=== PATIENT | female | born 1985 | race Caucasian/White ===

== ENCOUNTER → 2017-03-04 12:38 | Outpatient (CLI) | payer MEDICAID ==
[2012-12-05 11:04] VITALS: BMI 30.7
== END | disposition home or self-care (01) ==
LOC: D.US 12:38
DX: O35.2XX0 Maternal care for (suspected) hereditary disease in fetus, not applicable or unspecified (principal)

== ENCOUNTER 2017-05-05 00:20 | Emergency (ER) | payer MEDICAID ==
[2012-12-05 11:04] VITALS: BMI 30.7
== END 2017-05-05 01:22 | disposition home or self-care (01) ==
LOC: D.ER 00:20
DX: L30.4 Erythema intertrigo (principal); R11.0 Nausea

== ENCOUNTER 2017-05-05 16:51 | Emergency (ER) | payer MEDICAID ==
[2012-12-05 11:04] VITALS: BMI 30.7
== END 2017-05-05 18:28 | disposition home or self-care (01) ==
LOC: D.ER 16:51
DX: L30.4 Erythema intertrigo (principal)

== ENCOUNTER → 2017-05-20 11:55 | Outpatient (CLI) | payer BC ==
[2012-12-05 11:04] VITALS: BMI 30.7
== END | disposition home or self-care (01) ==
LOC: D.US 11:55
DX: Z34.90 Encounter for supervision of normal pregnancy, unspecified, unspecified trimester (principal)

== ENCOUNTER → 2017-06-21 11:39 | Outpatient (CLI) | payer BC ==
[2012-12-05 11:04] VITALS: BMI 30.7
== END | disposition home or self-care (01) ==
LOC: D.LDO 11:39 → D.LD 11:41
DX: O16.9 Unspecified maternal hypertension, unspecified trimester (principal); Z3A.00 Weeks of gestation of pregnancy not specified

== ENCOUNTER → 2017-06-24 10:25 | Outpatient (CLI) | payer BC ==
[2012-12-05 11:04] VITALS: BMI 30.7
[2017-06-24 11:41] LABS: BASOPHILS 0.1 % (0-2); EOSINOPHILS 1.4 % (0-7); HEMATOCRIT 31.6 % (36.0-48.0); HEMOGLOBIN 10.6 g/dL (12-16); IMMATURE GRANULOCYTES 0.5 % (0-5); LYMPHOCYTES 24.1 % (15-50); MCHC 33.5 g/dL (31.0-37.0); MCV 83.6 fL (80.0-100.0); MONOCYTES 9.6 % (2-11); NEUTROPHILS 64.3 % (40-80); PLATELET COUNT 213 10x3/uL (130-400); RBC 3.78 10x6/uL (4.00-5.40); RDW 13.5 % (11.5-14.5); WBC 7.7 10x3/uL (4.8-10.8)
[2017-06-24 11:58] LABS: ALBUMIN 2.4 g/dL (3.4-5.0); ALKALINE PHOSPHATASE 118 U/L (46-116); ALT (SGPT) 21 U/L (10-68); BILIRUBIN - TOTAL 0.28 mg/dL (0.2-1.3); CALC OSMOLALITY 267 mosm/kg (275-300); CALCIUM 8.6 mg/dL (8.5-10.1); CARBON DIOXIDE 23.5 mmol/L (21.0-32.0); CHLORIDE - SERUM 104 mmol/L (98-107); CREATININE - SERUM 0.6 mg/dL (0.6-1.3); GLUCOSE 86 mg/dL (74-106); POTASSIUM - SERUM 3.2 mmol/L (3.5-5.1); PROTEIN - SERUM 5.9 g/dL (6.4-8.2); SODIUM 136 mmol/L (136-145); UREA NITROGEN 5 mg/dL (7-18); URIC ACID 4.1 mg/dL (2.6-7.2); eGFR NON AFRICAN AMERICAN > 90 mL/min (90-120)
== END | disposition home or self-care (01) ==
LOC: D.LDO 10:25
PROVIDERS: Obstetrics & Gynecology
DX: O16.3 Unspecified maternal hypertension, third trimester (principal); Z3A.36 36 weeks gestation of pregnancy

== ENCOUNTER → 2017-06-25 10:24 | Outpatient (CLI) | payer BC ==
[2012-12-05 11:04] VITALS: BMI 30.7
[2017-06-25 11:15] LABS: BASOPHILS 0.1 % (0-2); HEMATOCRIT 31.5 % (36.0-48.0); HEMOGLOBIN 10.4 g/dL (12-16); IMMATURE GRANULOCYTES 0.6 % (0-5); LYMPHOCYTES 18.8 % (15-50); MCH 27.6 pg (26.0-34.0); MCV 83.6 fL (80.0-100.0); MEAN PLATELET VOLUME 9.9 fL (7.4-10.4); MONOCYTES 7.3 % (2-11); NEUTROPHILS 72.2 % (40-80); PLATELET COUNT 214 10x3/uL (130-400); RBC 3.77 10x6/uL (4.00-5.40); RDW 13.4 % (11.5-14.5); WBC 8.7 10x3/uL (4.8-10.8)
[2017-06-25 11:43] LABS: ALBUMIN 2.3 g/dL (3.4-5.0); ALKALINE PHOSPHATASE 115 U/L (46-116); ALT (SGPT) 20 U/L (10-68); BILIRUBIN - INDIRECT 0.25 mg/dL (0.00-1.00); BILIRUBIN - TOTAL 0.29 mg/dL (0.2-1.3); CALC OSMOLALITY 265 mosm/kg (275-300); CALCIUM 8.3 mg/dL (8.5-10.1); CARBON DIOXIDE 22.6 mmol/L (21.0-32.0); CHLORIDE - SERUM 103 mmol/L (98-107); CREATININE - SERUM 0.5 mg/dL (0.6-1.3); GLUCOSE 83 mg/dL (74-106); POTASSIUM - SERUM 3.3 mmol/L (3.5-5.1); PROTEIN - SERUM 5.9 g/dL (6.4-8.2); SODIUM 135 mmol/L (136-145); UREA NITROGEN 5 mg/dL (7-18); URIC ACID 4.1 mg/dL (2.6-7.2); eGFR NON AFRICAN AMERICAN > 90 mL/min (90-120)
[2017-06-25 11:54] LABS: BILIRUBIN - DIRECT 0.04 mg/dL (0.00-0.30)
== END | disposition home or self-care (01) ==
LOC: D.LDO 10:24
PROVIDERS: Obstetrics & Gynecology
DX: O16.3 Unspecified maternal hypertension, third trimester (principal); Z3A.36 36 weeks gestation of pregnancy

== ENCOUNTER → 2017-06-28 13:13 | Outpatient (CLI) | payer BC ==
[2012-12-05 11:04] VITALS: BMI 30.7
[~2017-06-28 13:13] MED LIST: BUTALB-APAP-CA1 EACH PO; PRENATAL COMPLE1 TAB PO; ZANTAC150 MG PO
== END | disposition home or self-care (01) ==
LOC: D.LDO 13:13
DX: O36.8130 Decreased fetal movements, third trimester, not applicable or unspecified (principal); Z3A.37 37 weeks gestation of pregnancy

== ENCOUNTER 2017-06-30 09:12 | Outpatient (CLI) | payer BC ==
[2012-12-05 11:04] VITALS: BMI 30.7
[2017-06-30 09:44] LABS: APPEARANCE HAZY (CLEAR); BILIRUBIN NEGATIVE (NEGATIVE); COLOR YELLOW (YELLOW); GLUCOSE NEGATIVE (NEGATIVE); KETONE NEGATIVE (NEGATIVE); NITRITE NEGATIVE (NEGATIVE); PROTEIN NEGATIVE (NEGATIVE); SPECIFIC GRAVITY 1.015 (1.005-1.020); UROBILINOGEN NORMAL (NORMAL)
[2017-06-30 10:24] LABS: HEMATOCRIT 32.1 % (36.0-48.0); HEMOGLOBIN 10.5 g/dL (12-16); MCH 27.2 pg (26.0-34.0); MCHC 32.7 g/dL (31.0-37.0); MCV 83.2 fL (80.0-100.0); MEAN PLATELET VOLUME 10.7 fL (7.4-10.4); RBC 3.86 10x6/uL (4.00-5.40); RDW 13.2 % (11.5-14.5); WBC 7.3 10x3/uL (4.8-10.8)
[2017-06-30 10:38] LABS: CALC OSMOLALITY 274 mosm/kg (275-300); CARBON DIOXIDE 23.4 mmol/L (21.0-32.0); CHLORIDE - SERUM 103 mmol/L (98-107); CREATININE - SERUM 0.6 mg/dL (0.6-1.3); GLUCOSE 90 mg/dL (74-106); POTASSIUM - SERUM 3.2 mmol/L (3.5-5.1); SODIUM 139 mmol/L (136-145); UREA NITROGEN 4 mg/dL (7-18); URIC ACID 4.6 mg/dL (2.6-7.2); eGFR NON AFRICAN AMERICAN > 90 mL/min (90-120)
[2017-06-30 10:54] LABS: ALT (SGPT) 19 U/L (10-68)
[2017-06-30] MEDS ORDERED: BUTALB-APAP-CA1 EACH PO (20:16)
[2017-06-30] MEDS ORDERED: PRENATAL COMPLE1 TAB PO (20:17)
== END 2017-06-30 20:20 | disposition home or self-care (01) ==
LOC: D.LDO 09:12 → D.LD 13:28 → D.LDO 20:20
PROVIDERS: Obstetrics & Gynecology
DX: O26.893 Other specified pregnancy related conditions, third trimester (principal); Z3A.37 37 weeks gestation of pregnancy; R51 Headache; R11.0 Nausea

== ENCOUNTER → 2017-07-01 10:06 | Outpatient (CLI) | payer BC ==
[2012-12-05 11:04] VITALS: BMI 30.7
[2017-07-01 12:44] LABS: APPEARANCE HAZY (CLEAR); BACTERIA FEW /hpf (NONE SEEN); BILIRUBIN NEGATIVE (NEGATIVE); COLOR YELLOW (YELLOW); EPITHELIAL CELLS 0-5 /hpf (0-5); GLUCOSE NEGATIVE (NEGATIVE); KETONE NEGATIVE (NEGATIVE); NITRITE NEGATIVE (NEGATIVE); PROTEIN NEGATIVE (NEGATIVE); SPECIFIC GRAVITY 1.015 (1.005-1.020); WHITE CELLS - URINE 0-5 /hpf (0-5)
[2017-07-01 12:45] LABS: CALCIUM OXALATE CRYSTALS 0-5 /hpf (NONE SEEN); MUCUS <1+ /lpf (NONE SEEN)
== END | disposition home or self-care (01) ==
LOC: D.LDO 10:06
PROVIDERS: Obstetrics & Gynecology
DX: Z34.83 Encounter for supervision of other normal pregnancy, third trimester (principal); Z3A.37 37 weeks gestation of pregnancy; R51 Headache; R11.2 Nausea with vomiting, unspecified

== ENCOUNTER 2017-07-04 15:53 | Inpatient (IN) | payer BC ==
[~2017-07-04 15:53] MED LIST changes: -ZANTAC150 MG PO
[2017-07-04 16:30] LABS: BASOPHILS 0.1 % (0-2); EOSINOPHILS 0.9 % (0-7); HEMATOCRIT 33.3 % (36.0-48.0); HEMOGLOBIN 10.9 g/dL (12-16); IMMATURE GRANULOCYTES 0.4 % (0-5); LYMPHOCYTES 15.3 % (15-50); MCH 27.2 pg (26.0-34.0); MCHC 32.7 g/dL (31.0-37.0); MEAN PLATELET VOLUME 10.3 fL (7.4-10.4); MONOCYTES 6.4 % (2-11); NEUTROPHILS 76.9 % (40-80); PLATELET COUNT 227 10x3/uL (130-400); RBC 4.01 10x6/uL (4.00-5.40); RDW 13.2 % (11.5-14.5); WBC 11.3 10x3/uL (4.8-10.8)
[2017-07-04 16:50] LABS: CALC OSMOLALITY 270 mosm/kg (275-300); CALCIUM 8.3 mg/dL (8.5-10.1); CARBON DIOXIDE 22.9 mmol/L (21.0-32.0); CHLORIDE - SERUM 102 mmol/L (98-107); CREATININE - SERUM 0.7 mg/dL (0.6-1.3); GLUCOSE 128 mg/dL (74-106); SODIUM 136 mmol/L (136-145); UREA NITROGEN 4 mg/dL (7-18); eGFR NON AFRICAN AMERICAN > 90 mL/min (90-120)
[2017-07-04 20:57] VITALS: BP 138/82; BMI 35.5
[2017-07-04] MEDS ORDERED: ZANTAC150 MG PO (21:04)
[2017-07-05] VITALS (11 sets, daily range): BP systolic 118–149; BP diastolic 50–86
--- NOTE | 2017-07-05 09:58 | NUR ---
RCVD PT FROM PACU. PT AAOX3 AND DENIES FEELING OR SENSATION IN BLE. BREATH SOUNDS CLEAR & UNLABORED X2. HR-123 MD AWARE OF ELEVATED HR. OTHER VSS. PPP. PIV TO RT FOREARM PATENT WITH NO SIGNS OF ERYTHEMA OR EDEMA NOTED TO SITE. NS WITH 20 U PITOCIN INFUSING @ 125ML/HR VIA ALARIS PUMP. HEAVY LOCHIA RUBRA NOTED PT IS MOVED OVER TO REGULAR BED. PERIPADS PLACED AT PERINEUM AND CLEAN CHUCKS AND PADS DOWN. PT DENIES PAIN AT THIS TIME. FUNDUS IS FIRM AND ML. NO CLOTS NOTED UPON MASSAGE. SCD'S ON BLE AND CONNECTED TO PUMP, PUMP FUNCTIONING PROPERLY. BOWEL SOUNDS ACTIVE X4. URIAS CATH IN PLACE AND DRAINING TO GRAVITY. LEMON AKUTAN SODA AND ICE WATER PROVIDED TO PT AT THIS TIME. PT DENIES FURTHER NEEDS. WILL CONT TO MONITOR. BED LOW, WHEELS LOCKED, CL IN REACH. SIDE RAILS UP X2.
--- NOTE | 2017-07-05 10:12 | NUR ---
200MCG CYTOTEC GIVEN PO PER ORDERS. SEE EMAR.
--- NOTE | 2017-07-05 10:17 | NUR ---
CONSULTED ANETHESIA REGARDING ELEVATED HEART RATE IN PACU. PATIENT'S PREOP HEART RATE WAS 100BPM. NO FURTHER ORDERS RECEIVED FROM DR NOLEN.
--- NOTE | 2017-07-05 10:18 | NUR ---
FUNDUS IS FIRM, MIDLINE AT THE UMBILICUS. MODERATE BLEEDING NOTED ON PERIPAD.
--- NOTE | 2017-07-05 11:15 | NUR ---
ROUNDS MADE. FUNDUS REMAINS FIRM AND U/U. HEAVY LOCHIA RUBRA NOTED TO PERIPADS, PADS, BLUE PADS, AND CHUCKS CHANGED AT THIS TIME. LARGE CLOT WITH SMALL PIECE OF POSSIBLE TISSUE NOTED AND COLLECTED TO SEND TO PATHOLOGY. PT DENIES PAIN OR FURTHER NEEDS AT THIS TIME.
--- NOTE | 2017-07-05 11:22 | NUR ---
CALLED TO REVIEW ORDER FOR ONION ALLERGY. PER DR GARCIA, D/C ORDER DUE TO MISTAKE.
--- NOTE | 2017-07-05 12:02 | NUR ---
ROUNDS MADE. FUNDUS FIRM, ML, U/U. MOD LOCHIA RUBRA NOTED TO PERIPAD WITH NO CLOTS NOTED. PADS CHANGED AT THIS TIME. PT DENIES PAIN OR NEEDS.
--- NOTE | 2017-07-05 13:09 | OP ---
PATIENT NAME: ISIDRA RUBIO MEDICAL RECORD: [id number] :86 LOCATION:[id number] ADMISSION DATE:07/04/17 SURGEON: SOLANGE YOUSIF MD DATE OF OPERATION: 07/05/2017 PRE-DELIVERY DIAGNOSIS: -induced hypertension at 38 weeks. POSTDELIVERY DIAGNOSES: 1. Variable decelerations. Mother delivered at term. 2. Retained placenta. PROCEDURES: 1. Vacuum-assisted delivery. 2. Attempted manual extraction of the placenta. ATTENDING: Solange Yousif MD ANESTHETIC: Continuous lumbar Epidural. FINDINGS: Viable male infant, vertex presentation, ROP. Apgars 1 minute not assigned, 5 minute 9, weight 2835 grams. with deep variable decelerations repetitive. The patient with poor maternal effort. At the time of delivery, cord is avulsed and placenta was attempted to be manually extracted with adherence to the uterine wall. No laceration. ESTIMATED BLOOD LOSS: 300 cc. DISPOSITION: Mother consented for a curettage and a tubal ligation due to unwanted fertility. TRANSINT:[id number] Voice Confirmation ID: [id number] DOCUMENT ID: [id number] SOLANGE YOUSIF MD at 1309 CC: [id number] DICTATION DATE: 07/05/17734 CUT AND COVER LINE WORKER: 07/05/17 0810 ADM IN [place] [id number]
--- NOTE | 2017-07-05 13:44 | NUR ---
TORADOL GIVEN PER ORDERS. SEE EMAR. PT REPORTS FEELING IN BLE. URIAS CATH REMOVED PER V/O DR GARCIA. ADV PT TO CALL BEFORE GETTING UP TO VOID. PT VERBALIZED UNDERSTANDING.
--- NOTE | 2017-07-05 14:10 | NUR ---
PAIN REASSESSMENT COMPLETE. PT RATES PAIN 4/10 AT THIS TIME AND TOLERABLE. PT SITTING UP WITH INFANT UP IN ARMS. DENIES FURTHER NEEDS. WILL CONT TO MONITOR.
--- NOTE | 2017-07-05 15:50 | NUR ---
REQUESTED TO GET UP TO BATHROOM TO VOID. ASSISTED TO BR WITHOUT DIFFICULTY. UNABLE TO VOID AT THIS TIME BUT SAYS SHE HAD A BOWEL MOVEMENT. DESIRED TO TAKE A SHOWER. BLEEDING SCANT, NO BLOOD CLOTS IN COMMODE. IV FLUIDS DC'D. SALINE LOCK MAINTAINED FOR ANTIBIOTIC THERAPY. ASSISTED TO SHOWER. COMPLETE LINEN CHANGED PERFORMED.
--- NOTE | 2017-07-05 16:29 | NUR ---
FINISHED SHOWER. AMBULATED IN ROOM. CLEAN TAMICA-PADS ON X 2. SAYS SHE FEELS MUCH BETTER AFTER THE SHOWER. SALINE LOCK FLUSED X 3 AND NEW CAPS PLACED ON PORTS. IN ARMS. SIDE RAILS UP X 2. CALL LIGHT IN REACH. VISITORS IN ROOM. FRESH WATER GIVEN. NO ADDITIONAL REQUESTS.
--- NOTE | 2017-07-05 17:45 | NUR ---
HAS ATTEMPTED TO VOID SEVERAL TIMES BUT SAYS SHE HAS BEEN UNABLE TO. STATES "I FEEL LIKE I HAVE TO GO BUT CAN'T". IN AND OUT CATH DONE USING SEISMIC OBSERVER WITHOUT DIFFICULTY. 800 ML LIGHT YELLOW RETURN. CATH REMOVED. U/1 FIRM MIDLINE. RUBRA SMALL. PERINEAL/LABIAL EDEMA NOTED. WILL PROVIDE ICE PACK FOR RELIEF OF EDEMA. IN ROOM. SIDE RAILS UP X 2, CALL LIGHT IN REACH.
--- NOTE | 2017-07-05 18:20 | NUR ---
REQUESTED SOMETHING FOR PERINEAL PRESSURE/THROBBING. 04/08 PAIN. DEMEROL 50 MG GIVEN PO FOR RELIEF. ICE PACK ON PERINEUM. INSTRUCTED IF FEELING DROWSY INFANT NEEDS TO BE IN CRIB AND NOT TO SLEEP WITH INFANT IN ARMS. ALSO TO CALL NURSE FOR ASSISTANCE TO BATHROOM IF FEELING DROWSY. VERBALIZED UNDERSTANDING. SIDE RAILS UP X 2, CALL LIGHT IN REACH. ANTIBIOTIC INFUSING.
--- NOTE | 2017-07-05 19:07 | NUR ---
THIS RN TO BEDSIDE FOR SHIFT ASSESSMENT. PT AA&O X4. PAIN ASSESSED. PT RATES PAIN 04/08. PT RECENTLY MEDICATED W/DEMEROL 100MG PO. BREATHSOUNDS CL/=, ABD W/MILD DISTENTION AND FIRMNESS NOTED. PT DENIES PASSING FLATUS OF YET.FUNDUS FIRM,U/U,LAP INCISION AT UMBILICUS W/BANDAID OVER SITE W/OUT REDNESS OR DRAINING. MILD EDEMA TO LABIA NOTED. SMALL LOCHIA NOTED. PT CURRENTLY HAS ICE CAP TO PERINEUM. NO EDEMA TO LE'S NOTED. PEDAL PULSES PRESENT X 2.PT DENIES NEEDING ANYTHING TO EAT OR DRINK AT THIS TIME. PLANS TO REST. TORADOL 30MG DILUTED IN 5ML NS GIVEN SIVP PER MD ORDERS. SEE EMAR. BED LOW, SIDE RAILS UP X 2. CALL LIGHT AND PHONE AT PT'S SIDE.
--- NOTE | 2017-07-05 20:00 | NUR ---
ROUNDS MADE. PT RESTING IN LOW CURRIE'S W/EYES CLOSED. RESP EVEN. SNORING AUDIBLE. PT LEFT UNDISTURBED TO ALLOW FOR REST.
--- NOTE | 2017-07-05 21:00 | NUR ---
INFANT TRANSPORTED VIA CRIB TO PT'S ROOM FOR NURSING. PT CURRENTLY AWAKE AND ENDING A PHONE CALL. NURSERY BANDS VERIFIED PER PROTOCOL. INFANT PLACED IN PT'S ARMS.PT DENIES NEEDS AT PRESENT.
--- NOTE | 2017-07-05 22:00 | NUR ---
PT. CALLED THIS NURSE TO ROOM STATING, "I PASSED THE REST OF IT." INTO PT. ROOM AND LARGE AMT. OF TISSUE NOTED IN [place] HAT. TISSUE REMOVED AND PLACED IN BUCKET. TISSUE EXAMINED AND AN APPROXIMATE 8CM BY 8 CM SECTION OF TISSUE NOTED THAT APPEARS PLACENTAL TISSUE. PT. STATES, "IT WAS LIKE GIVING AND I FEEL MUCH BETTER."
--- NOTE | 2017-07-05 22:15 | NUR ---
THIS RN TO PT'S ROOM. PT UP AMBULATING IN ROOM. INFANT IN CRIB. PT REPORTS SHE CAN'T GET AWAKE ENOUGH FOR NURSING. INFANT STIMULATED. PT TO BED. NIPPLE SHIELD IN PLACE. PT ATTEMPTING TO LATCH INFANT THISR N LEAVES THE ROOM.
--- NOTE | 2017-07-05 22:17 | NUR ---
DR. ROWAN CALLED AND INFORMED OF TISSUE THAT WAS PASSED. ORDER RECEIVED.
--- NOTE | 2017-07-05 23:05 | NUR ---
Devora REINOSO,RN NBN NURSE REQUEST THIS RN TO PT'S ROOM TO ASSESS HUGS TAG. THIS RN TO PT'S ROOM. HUGS TAG AND NB ID TAG FOUND TO HAVE SLIPPED OFF INFANTS LEGS. PT DENIES PAIN OR NEEDS AT PRERSENT. PT REPORTS STILL HAS NOT NURSED. PT INFORMED THAT NBN NURSE WILL BE INFORMED AND WILL RETURN TO ROOM TO ASSIST W/GETTING LATCHED. PT IS AGREEABLE. TRANSPORTED AT THIS TIME VIA CRIB TO NBN SO NBN NURSE MAY PLACE TAGS BACK ON AND TO BE INFORMED THAT MOM NEEDS ASSSISTANCE W/GETTING LATCHED AND NURSING.
--- NOTE | 2017-07-06 00:05 | NUR ---
THIS RN TO BEDSIDE FOR ROUNDING AND V/S. PT AWAKE LYING IN BED W/ UP IN ARMS. PAIN AND NEEDS ASSESSED. PT DENIES NEEDS AT PRESENT AND DENIES HAVING PAIN SINCE PASSING REMAINING PLACENTA. PT REPORT SHE IS GOING TO TRY AND REST AGAIN. REQUEST BE PLACED IN CRIB AT BEDSIDE. RECEIVED FROM PT. SWADDLED X 2 W/HAT ON. PLACING IN CRIB AT PT'S SIDE SO PT MAY SEE INFANTS FACE. LIGHTS TURNED DOWN PER REQUEST. BED LOW, SIDE RAILS UP X 2. CALL LIGHT AND PHONE AT BEDSIDE.
[2017-07-06 00:15] VITALS: BP 140/70
--- NOTE | 2017-07-06 02:00 | NUR ---
THIS RN TO BEDSIDE FOR ROUNDING AND TO ADMIN ANCEF 2GM PER MD ORDERS. PAIN AND NEEDS ASSESSED. PT W/C/O ABD CRAMPING. DECLINES DEMEROL AT THIS. TORADOL 30MG DILUTED IN 5ML NS GIVEN SIVP PER MD ORDERS.V/S OBTAINED. SEE FLOWSHEET. QUIET W/EYES CLOSED IN CRIB AT BEDSIDE. NO RESP DISTRESS NOTED. EMAR FOR DOC OF MEDICATIONS GIVEN.
--- NOTE | 2017-07-06 02:30 | NUR ---
INFANT RETURNED FROM NURSERY FOR . ID BANDS VERIFIED PER PROTOCOL. PLACED IN PT'S ARMS. PT DENIES NEEDS AT THIS TIME. FRESH ICE WATER AND PP TREAT BOX PROVIDED.
--- NOTE | 2017-07-06 02:30 | NUR ---
IV PUMP SOUNDING. THIS RN TO BEDSIDE. IVBP INFUSION COMPLETED. LINE FLUSHED AND IV SITE SALINE LOCKED. PT TO BEGIN NURSING AT THIS TIME. NO NEEDS VOICED AT THIS TIME.
--- NOTE | 2017-07-06 03:15 | NUR ---
ROUNDS MADE. PT HAS FINISHED NURSING. REQUESTING PAIN MEDICATION AT THIS TIME FOR ABD CRAMPING THAT SHE RATES 04/08. PT ASSISTED W/CHANGING AND SWADDLING.
--- NOTE | 2017-07-06 03:24 | NUR ---
DEMEROL 50MG PO GIVEN. PT DENIES FURTHER NEEDS AT THIS TIME.
--- NOTE | 2017-07-06 04:15 | NUR ---
ROUNDS MADE FOR PAIN REASSESSMENT. PT RESTING QUIETLY W/EYES CLOSED. RESP EVEN. PT LEFT UNDISTURBED AT THIS TIME.
[2017-07-06 05:13] LABS: RAPID PLASMA REAGIN Non Reactive (Non Reactive)
--- NOTE | 2017-07-06 05:15 | NUR ---
ROUNDS MADE.PT SITTING UP IN BED TENDING TO INFANT. PAIN AND NEEDS ASSESSED. PT DENIES NEEDS AT PRESENT. REPORTS PAIN AT 2/10. DENIES NEEDING ADDITIONAL PAIN INTERVENTIONS AT THIS TIME.
--- NOTE | 2017-07-06 06:30 | NUR ---
HUMAN MACHINE INTERFACE ENGINEER TO ROOM FOR MORNING BLOOD DRAW. THIS RN TO ROOM FOR ROUNDING. PT AWAKE SITTING UP IN BED W/ UP IN ARMS. PT DENIES NEEDS AND W/O COMPLAINTS.
[2017-07-06 07:02] LABS: BASOPHILS 0.2 % (0-2); EOSINOPHILS 1.9 % (0-7); HEMATOCRIT 26.7 % (36.0-48.0); IMMATURE GRANULOCYTES 0.5 % (0-5); LYMPHOCYTES 16.6 % (15-50); MCH 27.2 pg (26.0-34.0); MCHC 32.6 g/dL (31.0-37.0); MCV 83.4 fL (80.0-100.0); MEAN PLATELET VOLUME 10.4 fL (7.4-10.4); NEUTROPHILS 73.8 % (40-80); PLATELET COUNT 229 10x3/uL (130-400); RDW 13.4 % (11.5-14.5)
[2017-07-06 07:07] LABS: HEMOGLOBIN 8.7 g/dL (12-16); WBC 14.7 10x3/uL (4.8-10.8)
[2017-07-06 07:10] VITALS: BP 120/73
--- NOTE | 2017-07-06 07:10 | NUR ---
ASSUME CARE OF THIS PATIENT. SITTING UP IN BED HOLDING . SHIFT ASSESSMENT COMPLETED. 01/07 PERINEAL PRESSURE. LARGE BANDAID OVER UMBILICAL REGION, DRY AND INTACT. DENIES NEEDING ANYTHING AT THIS TIME. ENCOURAGE TO GET UP AND VOID. SIDE RAILS UP X 2 CALL LIGHT IN REACH.
--- NOTE | 2017-07-06 07:50 | NUR ---
RADIOLOGY CALLED TO CHECK ON TYPE OF US TO PERFORM. CONTACTED DR ROWAN- HE REQUEST ABDOMINAL US FOR DETERMINATION OF UTERINE CONTENTS.
--- NOTE | 2017-07-06 08:00 | NUR ---
AMBULATED TO NURSERY.
--- NOTE | 2017-07-06 08:24 | NUR ---
US TECH CALLED BACK TO L&D. NOTIFIED OF TYPE US REQUESTED BY DR ROWAN. INSTRUCTED BY TECH TO HAVE PATIENT EMPTY BLADDER AND THEN DRINK 3 GLASSES OF WATER. PATIENT INFORMED AND SAYS SHE JUST EMPTIED BLADDER. DRANK 400 ML OF WATER AT THIS TIME. WATER GLASS FILLED. DISCUSSED PAIN MANAGEMENT OPTION REGARDING US PROCEDURE ON ABDOMEN OVER BTL INCISION SITE. DESIRES PAIN MED. ANTICIPATE US PROCEDURE TO BE COMPLETED IN ONE HOUR. NURSERY. SIDE RAILS UP X 2, CALL LIGHT IN REACH.
--- NOTE | 2017-07-06 08:24 | NUR ---
I HAD THE NURSES CALL TO CLARIFY ORDER WITH . DO TRANSABDOMINAL ONLY FOR UTERUS TO CHECK FOR POC RETAINED. INSTRUCTIONS TO EMPTY AND DRINK AND I WILL DO IN APPROX 1 HOUR. AKIKO NAQVI AT 0820
--- NOTE | 2017-07-06 08:37 | NUR ---
PAGED DR ROWAN TO CHECK IF HE WANTS CYTOCirro TO CONTINUE THIS AM SINCE PT PASSED PLACENTAL MATERIAL LAST NIGHT AND BLEEDING IS MINIMAL. WAITING ON RETURN CALL.
--- NOTE | 2017-07-06 08:44 | NUR ---
DR ROWAN CALLED. RESULTS OF CBC GIVEN. ORDERS RECEIVED TO HOLD CYTOeGistics UNTIL RESULTS OF US. DEMEROL 50 MG GIVEN PO FOR RELIEF OF 5-6/10 PERINEAL PAIN. DECLINES FLU VACCINE. PLANS TDAP PRIOR TO DISCHARGE. REMAINS IN NURSERY. FINISHED DRINKING SECOND 500 ML. REFILL GIVEN. SIDE RAILS X 2 REMAIN UP. CALL LIGHT IN REACH.
--- NOTE | 2017-07-06 11:01 | NUR ---
SITTING UP IN BED . 2/10 ON PAIN SCALE. VISITORS IN ROOM. DENIES NEEDING ANYTHING. LINEN CHANGED BY NURSING STUDENTS. HAS NOT SHOWERED. TO CALL IF NEEDING ANYTHING.
--- NOTE | 2017-07-06 11:05 | NUR ---
US REPORT OBTAINED. DR ROWAN NOTIFIED OF RESULTS. ORDERS RECEIVED.
--- NOTE | 2017-07-06 12:33 | NUR ---
SITTING UP IN BED. REGULAR DIET IN ROOM. VISITORS AT BEDSIDE. DENIES NEEDING ANYTHING AT THIS TIME. TO CALL IF ANYTHING IS DESIRED.
--- NOTE | 2017-07-06 13:04 | NUR ---
SLEEPING WITH INFANT IN ARMS. AROUSED FROM SLEEP. INSTRUCTED NOT TO SLEEP WITH IN ARMS DUE TO SAFETY REASONS. INFANT PLACED IN CRIB AT BEDSIDE. ASKED PT IF SHE DESIRES INFANT TO GO TO NURSERY WHILE SHE TAKES A NAP. VERBALIZED YES. TO NURSERY IN CRIB. NO VISITORS CURRENTLY IN ROOM. LIGHTS ON LOW. SIDERAILS UP X 2, CALL LIGHT IN REACH.
--- NOTE | 2017-07-06 15:26 | NUR ---
SITTING UP IN BED INFANT. MK CRACKERS AND ORANGE JUICE GIVEN A SNACK PER PT REQUEST. TO CALL IF ANYTHING ELSE IS NEEDED. VERBALIZED UNDERSTANIND.
[2017-07-06 15:49] VITALS: BP 125/76
--- NOTE | 2017-07-06 15:49 | NUR ---
WATCHING TV. INFANT IN ARMS. NO REQUESTS. SIDERAILS UP X 1, CALL LIGHT IN REACH.
--- NOTE | 2017-07-06 18:22 | NUR ---
SITTING UP IN BED . DESIRES TO TAKE SHOWER WHILE FOB IS HERE. ITEMS PLACED IN BATHROOM FOR USE WHEN READY. SLIGHT ERRYTHEMA NOTED AT IV SITE. SALINE LOCK DC'D WITH TIP IN TACT. FOB IN ROOM. ASKED ABOUT A STOOL SOFTNER. INFORMED SHE HAS MOM ORDER FOR BEDTIME. WILL LET PM SHIFT KNOW PT DESIRES AT BEDTIME. VERBALIZED UNDERSTANDING. NO OTHER REQUESTS. SIDE RAILS UP X 2, CALL LIGHT IN REACH.
[2017-07-06 19:08] VITALS: BP 132/68
--- NOTE | 2017-07-06 19:08 | NUR ---
PT AWAKE AND ORIENTED. SKIN WARM AND DRY. HAS BEEN WALKING IN HALLWAY TO NURSERY PRIOR TO THIS ASSESSMENT. GAIT STEADY. ABD. BANDAID NOTED AT UMBILICUS. LOCHIA RUBRA SCANT. PT. STATES SHE HAS FELT WELL TODAY. DENIES ANY PAIN IN LOWER EXTREMITIES. BREATH SOUNDS CLEAR AND BOWEL SOUNDS AUDIBLE.
--- NOTE | 2017-07-06 20:25 | NUR ---
LYING IN BED WITH HOB AT 45 DEGREES. INFANT IN OPEN CRIB AT BEDSIDE. PT. DENIES ANY NEEDS AT THIS TIME.
--- NOTE | 2017-07-06 20:55 | NUR ---
STANDING BESIDE BED CHANGING . PT. DENIES ANY NEEDS AT THIS TIME. VOICED CONCERNS ABOUT CONSTIPATION. INFORMED COULD USE MILK OF MAGNESIA AT HOME IF NEEDED. PT. STATES SHE HAS COLACE ON HAND.
--- NOTE | 2017-07-06 22:30 | NUR ---
LYING ON LT SIDE WITH IN OPEN CRIB AT BEDSIDE. PT. AWAKE AND DENIES ANY NEEDS.
--- NOTE | 2017-07-06 23:20 | NUR ---
LYING ON BACK WITH HOB AT 45 DEGREES HOLDING AND WATCHING TV. STATES DESIRES TO BE HELD. DENIES ANY NEEDS.
--- NOTE | 2017-07-06 23:47 | NUR ---
AMBULATORY IN HALLWAY. STATES SHE IS WALKING TO VENDING FOR SNACK. INFORMED PT. OF NOURISHMENTS ON UNIT AND PT. DECLINES. STATES SHE JUST WANTS A SNACK.
--- NOTE | 2017-07-06 23:48 | NUR ---
BACK TO UNIT WITH SNACK. STATES SHE WILL EAT AND THEN GO TO SLEEP UNTIL INFANT RETURNS TO ROOM.
--- NOTE | 2017-07-07 00:32 | NUR ---
AMBULATORY TO NURSERY TO TAKE INFANT TO ROOM. PT. RELATES THAT SHE CAN'T SLEEP. DENIES ANY NEEDS. CHEERFUL.
--- NOTE | 2017-07-07 02:30 | NUR ---
AT PRESENT. PT. DENIES ANY NEEDS AT THIS TIME. WATCHING TV AT PRESENT.
--- NOTE | 2017-07-07 02:56 | NUR ---
AMBULATING IN HALLWAY.
--- NOTE | 2017-07-07 04:15 | NUR ---
INFANT RESTING IN MOTHER'S ARMS. NO S/S DISTRESS NOTED. [place]
--- NOTE | 2017-07-07 04:21 | NUR ---
SITTING UP IN BED HOLDING AND WATCHING TV. COLA DRINK SERVED TO PT. PER HER REQUEST.
--- NOTE | 2017-07-07 06:20 | NUR ---
LYING ON LT SIDE WITH EYES CLOSED. RESPIRATIONS REGULAR.
--- NOTE | 2017-07-07 06:28 | NUR ---
INFANT TO ROOM FOR FEEDING PER NBN STAFF.
--- NOTE | 2017-07-07 07:40 | NUR ---
ASSUMED CARE OF THIS PATIENT. SITTING UP IN BED HOLDING INFANT. SHIFT ASSESSMENT WAS COMPLETED. U/U FIRM MIDLINE. 5/10 INCISIONAL PAIN. MOTRIN 600 MG GIVEN PO FOR RELIEF. NO PRESCRIPTIONS ON CHART FOR DC. CONTACTED DR ROWAN TO CONFIRM THAT NO PRESCRIPTIONS WERE LEFT. HE CONFIRMED. DC ORDERS WERE RECEIVED PRIOR TO MD LEAVING L&D THIS AM. REGULAR DIET AT BEDSIDE. DENIES NEEDING ANYTHING FURTHER. DESIRES TDAP. WILL GIVE PRIOR TO DC TODAY. SIDE RAILS UP X 2, CALL LIGHT IN REACH.
[2017-07-07 07:43] VITALS: BP 136/71
--- NOTE | 2017-07-07 08:50 | NUR ---
REQUESTED PAIN MEDICATION FOR CONTINUED THROBBING OF BTL INCISION NO RELIEVED BY MOTRIN. DEMEROL 50 MG GIVEN PO FOR RELIEF. DECLINES SHOWER SAYING THAT "HE SAID NOT TO GET IT WET UNTIL TOMORROW". ARANZA X 2 CALL LIGHT IN REACH.
--- NOTE | 2017-07-07 10:30 | NUR ---
STANDING A BEDSIDE TALKING ON PHONE. SAYS HER PAIN IS NOW "A TWO". NO REQUESTS AT THIS TIME. ANTICIPATE DC HOME WITH INFANT.
--- NOTE | 2017-07-07 12:38 | NUR ---
TDAP GIVEN IM IN LEFT DELTOID WITHOUT DIFFICULTY. READY FOR DC HOME. VERBAL AND WRITTEN INFORMATION GIVEN ON ROUTINE PP CARE, BTL, PP DEPRESSION, S&S INFECTION, /BREAST CARE, MEDICATION ADMINISTRATION, COMMUNITY RESOURCES, INFANT CAR SAFETY AND FOLLOW-UP. TO CALL SATURDAY TO SCHEDULE FOUR WEEK APPOINTMENT. VERBALIZED UNDERSTANDING.
--- NOTE | 2017-07-07 13:00 | NUR ---
DECLINES WHEELCHAIR. DC'D AMBULATORY TO CAR WITH IN CARSEAT. FOB DRIVING. ALL BELONGINGS REMOVED FROM ROOM.
--- NOTE | 2017-07-16 12:52 | OP ---
PATIENT NAME: ISIDRA RUBIO MEDICAL RECORD: [id number] :86 LOCATION:[id number] ADMISSION DATE:07/04/17 SURGEON: TREMAYNE GARCIA MD DATE OF OPERATION: 07/05/2017 PREOPERATIVE DIAGNOSES: Retained placenta. POSTOPERATIVE DIAGNOSIS: Retained placenta. PROCEDURE: Dilation and curettage with manual extraction of placenta. SURGEON: Tremayne Garcia MD ANESTHESIOLOGIST: Brady Zhu MD ANESTHETIC: General. FINDINGS: Uterus is enlarged and appropriate for immediate state. Placenta is found to be retained in the uterus and densely adherent to the fundus. SPECIMEN REMOVED: Placenta. SPECIMEN DISPOSITION: Pathology. ESTIMATED BLOOD LOSS: Less than or equal to 150 cc. FLUIDS: 1800 cc of lactated Ringer's. URINE OUTPUT: 1000 cc. COMPLICATIONS: None. DRAINS: None. INDICATIONS: The patient is a 31-year-old female, who underwent spontaneous vaginal delivery. During the extraction of the placenta, there was an avulsed cord and upon manual extraction, it was not freely removed. The patient was consented for evacuation and removal of placenta in the operating room. DESCRIPTION OF PROCEDURE: After informed consent was assured, the patient was taken to the operating room, anesthetic was obtained without difficulty. The patient was then prepped and draped. Using Breisky retractors and a weighted speculum, the cervix was identified. These retractors were removed and with a gloved hand, the vessel operator extracts bulk of the placenta. A curettage was now performed with a banjo curette. Products of conceptions removed. Another exploration of the uterus reveals a retained portion of the placenta and membranes attached to the fundus. This was not readily removed. At this point, the procedure was discontinued. The patient was given misoprostol per rectum. Sponge, lap, and needle counts correct times 2. The patient will return to labor and delivery and remain on misoprostol until passage of placental products. TRANSINT:[id number] Voice Confirmation ID: [id number] DOCUMENT ID: [id number] OPERATIVE REPORT [id number] JOANNEMISAELISIDRA TREMAYNE SERNA MD at 1252 CC: [id number] DICTATION DATE: 07/16/17 0757 LOOM DOFFER: 07/16/17 0844 DIS IN 07/07/17 [facility] [address] [place] [address]
--- NOTE | 2017-07-30 09:56 | DS ---
PATIENT:ISIDRA RUBIO :87 MEDICAL RECORD: [id number] DISCHARGE SUMMARY ADMISSION DATE: 07/04/17 DISCHARGE DATE: 07/07/17 DATE OF ADMISSION: The patient was admitted on 07/04/[address] Tremayne Yousif. HISTORY OF PRESENT ILLNESS: A 31-year-old G3, P2 at 38 weeks who was admitted for induction of labor due to -induced hypertension. The patient was noted to be O positive, group B strep positive, rubella immune. PAST MEDICAL HISTORY: Significant for migraines, gastroesophageal reflux disease, depression, anxiety. PAST SURGICAL HISTORY: Significant for cholecystectomy, knee surgery, and shoulder surgery. ALLERGIES: The patient reported no allergies. MEDICATIONS: Included Fioricet, vitamins, and Zantac. FAMILY HISTORY: The patient reported no significant family history. SOCIAL HISTORY: The patient reported social history significant for being a former tobacco user. PHYSICAL EXAMINATION: LUNGS: On initial assessment lungs were clear to auscultation per the H&P. CARDIOVASCULAR: Regular rate and rhythm. PELVIC: Uterus was appropriately sized and nontender. EXTREMITIES: Lower extremities were free of Homans sign. PIH labs were performed and the patient was noted to have normal liver enzymes. Hemoglobin was 10.9, platelet count was 227. ASSESSMENT AND PLAN: At that time, PIH at 38 weeks, plan for misoprostol induction per Dr. Yousif. The patient had an and a D&C for a retained placenta per Dr. Yousif. HOSPITAL COURSE: I assumed care on the morning of day #1. The patient had been started on uterotonics overnight with expulsion of a large piece of placenta. Minimal bleeding was noted upon my examination, vital signs were stable. I obtained an ultrasound on day #1 and no evidence of further retained products of conception were noted. At that time, the patient was advanced to general diet and p.o. pain meds, ambulation was begun. The patient was voiding freely uterus was infraumbilical and nontender. hemoglobin was found to be 8.7. The patient did well overnight on day #1. On the morning of postop day #2, vital signs were stable. The patient was afebrile. Minimal lochia. Hemoglobin was stable and the patient was discharged home with instructions to follow up with Dr. Yousif in 4 weeks. TRANSINT:[id number] Voice Confirmation ID: [id number] DOCUMENT ID: [id number] DISCHARGE SUMMARY REPORT [id number] ISIDRA RUBIO, HILTON Mayo MD at 0956 CC: [id number] DICTATION DATE: 07/28/17 1403 BIOFUELS PRODUCTION ASSOCIATE: 07/29/17 0301 DIS IN 07/07/17 [place] [id number] [place] [id number]
--- NOTE | 2017-09-04 22:27 | OP ---
PATIENT NAME: ISIDRA RUBIO MEDICAL RECORD: [id number] :86 LOCATION:[id number] ADMISSION DATE:07/04/17 SURGEON: SOLANGE GARCIA MD DATE OF OPERATION: 07/05/2017 Addendum ADDENDUM TO PREOPERATIVE DIAGNOSIS: Unwanted fertility. ADDENDUM TO POSTOPERATIVE DIAGNOSIS: Unwanted fertility. ADDITIONAL PROCEDURE PERFORMED: Tubal ligation. For estimated blood loss, fluids, and urine output, see the previously dictated operative note for the extraction of retained placenta. ADDENDUM TO DESCRIPTION OF PROCEDURE: After completion of removal of retained placental products, attention was directed to the abdomen. An incision was made at the infraumbilical incision site and carried down to the underlying layer of the fascia. The fascia was opened and the opening extended laterally with Garcia scissors. Using [place] retractors and by positioning the patient on the table by tilting per anesthesia, the left tube was identified, followed to its fimbriated end. A knuckle was now developed and this knuckle was doubly ligated with plain gut. The intervening segment of tube was excised and the ostia cauterized. The tubal stump was returned to the abdomen after hemostasis is found to be adequate. The patient is now tilted to the left and the right tube was followed to its fimbriated end and after it has been located and elevated with a [place] clamp. Again a knuckle was developed and it is doubly ligated and the intervening segment of tube excised. Ostia was cauterized. The tubal stump was returned to the abdomen. Fascia was now closed with 0 Vicryl in a running fashion. Subcuticular stitch is now applied. Sterile dressing is placed over the incision site. Our sponge, lap, and needle count is correct times 2. The patient tolerated the procedure well and was sent to the recovery area in stable condition and then back to labor and delivery. TRANSINT:[id number] Voice Confirmation ID: [id number] DOCUMENT ID: [id number] SOLANGE GARCIA MD at 2227 CC: [id number] DICTATION DATE: 08/29/17 0834 MANAGER OF MERCHANDISING: 08/29/17 1047 DIS IN 07/07/17 [place] [address]
== END 2017-07-07 13:00 | disposition home or self-care (01) | DRG 767 ==
LOC: D.LD 15:53
PROVIDERS: ADMIT Obstetrics & Gynecology
PROC: 10D07Z6 Extraction of Products of Conception, Vacuum, Via Natural or Artificial Opening (ICD-10-PCS; principal; 2017-07-05 08:30)
PROC: 10D17ZZ Extraction of Products of Conception, Retained, Via Natural or Artificial Opening (ICD-10-PCS; 2017-07-05 08:30)
DX: O13.4 Gestational [pregnancy-induced] hypertension without significant proteinuria, complicating childbirth (principal); O73.0 Retained placenta without hemorrhage; Z3A.38 38 weeks gestation of pregnancy; Z37.0 Single live birth; O76 Abnormality in fetal heart rate and rhythm complicating labor and delivery; O99.824 Streptococcus B carrier state complicating childbirth